=== PATIENT | female | born 1960 | race Caucasian/White ===

== ENCOUNTER 2018-07-05 04:58 | Inpatient (IN) ==
--- NOTE | 2018-06-09 11:27 | Anesthesiology Consultation ---
Date of Service June 09, 2018 Assessment & Plan (1) Encounter for pre-operative examination: Chart Review Chart Review: Acceptable Risk for Surgery and Patient seen in Pre Admission Testing Consults Requested none Teaching & Discussion Pre-Anesthesia Teaching/Discussion Notes: Instructed NPO after midnight before surgery, except medications with 15 cc of water. Medication instructions provided according to the PAT guidelines. History Surgery Operation Date: 07/05/18 12:30 Proposed Procedures p Left Total Knee Arthroplasty - Carlos Yung MD Height/Weight Height: 5 ft 8 in Weight: 74.2 kg Allergies Allergy/AdvReac Type Severity Reaction Status Date / Time No Known Allergies Allergy Unknown Verified 06/05/18 10:30 Medications Home Medications Medication Instructions Recorded Confirmed Last Taken acetaminophen [Tylenol] 650 mg PO Q6H PRN 06/05/18 06/05/18 Unknown amlodipine 2.5 mg PO QAM 06/05/18 06/05/18 Unknown calcium carbonate [Calcium 500] 500 mg PO QAM 06/05/18 06/05/18 Unknown diclofenac sodium 50 mg PO BID 06/05/18 06/05/18 Unknown multivitamin 1 cap PO QAM 06/05/18 06/05/18 Unknown ranitidine HCl 150 mg PO QAM 06/05/18 06/05/18 Unknown Past Medical History Medical History GERD (gastroesophageal reflux disease) Hypertension Osteoarthritis Past Surgical History Surgical History History of ankle surgery LEFT ANKLE REPAIR WITH HARDWARE. History of bilateral tubal ligation History of total hip arthroplasty B/L Past Anesthesia History No Hx of Anesthesia Complications and No Family Hx of Anesthesia Complications History of PONV No Motion Sickness Screening History of Motion Sickness: Yes Social History Smoking Status: Never smoker Do You Dip or Chew Tobacco: No Hx Alcohol Use: Yes Alcohol type: wine alcohol intake frequency: 0-2 drinks per day Alcohol Intake Frequency Comment: 1-2 GLASSES PER NIGHT Hx Substance Use: No substance use type: does not use Exercise / Class Metabolic Activity II 4-5 Yardwork/Stairs/Walk up hill (30 minutes on stationary bike each morning. Free weights each morning. Able to climb FOS. Denies CP or SOB. ) Review of Systems Patient denies chest pain, shortness of breath, dyspnea on exertion, reflux ( controlled with medication), cough, wheezing, palpitations. +joint pain (knees) Physical Exam Vital Signs BP: 124/74 P: 64 R: 18 T: 97.4 SPO2: 98% on RA ENMT Thyromental Distance: > or= 3.5 Finger Breadths (4) Mallampati Class: II Neck normal visual inspection and trachea midline; neck extension not limited Respiratory normal respiratory effort Auscultation: lungs clear to auscultation bilaterally Cardiovascular Rate/Rhythm: regular rate and regular rhythm Heart Sounds: no murmur Vessels: no carotid bruit Psychiatric Orientation: alert and oriented x 3 Testing Electrocardiogram Date: 06/09/18 Findings: + SB @ (59) Chest X-Ray Date: 06/09/18 Findings: + NAD FINDINGS: There is suspected mild lung hyperinflation. There is no pneumothorax or pleural effusion. A 4 mm density within the left midlung either reflects a calcified granuloma or benign rib lesion. Cardiac size is normal. Mediastinal contours are normal. IMPRESSION: No acute cardiopulmonary findings. Laboratory Results 06/09/18 11:58 06/09/18 11:58 Blood Type B Positive 06/09/18 11:58 Antibody Screen NEGATIVE 06/09/18 11:58 PT 10.5 Seconds (9.0-12.0) 06/09/18 11:58 INR 1.0 (0.9-1.1) 06/09/18 11:58 APTT 25.1 Seconds (21.0-31.0) 06/09/18 11:58 Hemoglobin A1c 5.7 % (4.5-5.6) H 06/09/18 11:58 Urine Color Yellow 06/09/18 Unknown Urine Appearance Clear (Clear) 06/09/18 Unknown Urine pH 8.0 (4.5-7.5) H 06/09/18 Unknown Ur Specific [place] 1.009 (1.000-1.030) 06/09/18 Unknown Urine Protein Negative (Negative) 06/09/18 Unknown Urine Glucose (UA) Negative (Negative) 06/09/18 Unknown Urine Ketones Negative (Negative) 06/09/18 Unknown Urine Nitrite Negative (Negative) 06/09/18 Unknown Ur Leukocyte Esterase Negative (Negative) 06/09/18 Unknown
--- NOTE | 2018-06-09 11:29 | PAT Medication Instructions ---
Medication Instructions Date of Service June 09, 2018 Home Medications acetaminophen [Tylenol] 650 mg PO Q6H NEEDED amlodipine 2.5 mg PO QAM calcium carbonate [Calcium 500] 500 mg PO QAM diclofenac sodium 50 mg PO BID multivitamin 1 cap PO QAM ranitidine HCl 150 mg PO QAM ASK your surgeon for instructions diclofenac sodium 50 mg PO BID DO NOT take the morning of surgery calcium carbonate [Calcium 500] 500 mg PO QAM multivitamin 1 cap PO QAM Take morning of surgery With a small sip of water, OTHERWISE NOTHING TO EAT OR DRINK AFTER MIDNIGHT: acetaminophen [Tylenol] 650 mg PO Q6H NEEDED amlodipine 2.5 mg PO QAM ranitidine HCl 150 mg PO QAM Take evening before surgery acetaminophen [Tylenol] 650 mg PO Q6H NEEDED Other Notes If you have any questions please call us at [phone] or [phone] or [phone] or [phone]
--- NOTE | 2018-06-09 12:41 | XRay Report ---
XR chest Pre-admission PA/Lat CLINICAL HISTORY: Preoperative evaluation. COMPARISON STUDY: No previous studies for comparison. FINDINGS: There is suspected mild lung hyperinflation. There is no pneumothorax or pleural effusion. A 4 mm density within the left midlung either reflects a calcified granuloma or benign rib lesion. Ca rdiac size is normal. Mediastinal contours are normal. IMPRESSION: No acute cardiopulmonary findings. Electronically signed by: Jamil Quiroz M.D. 06/09/2018 12:40 PM
[2018-06-09 12:46] LABS: Basophils # (auto) 0.02 K/uL (0-0.2); Basophils % (auto) 0.3 %; Eosinophils # (auto) 0.14 K/uL (0-0.5); Eosinophils % (auto) 2.3 %; Hematocrit (blood only) 43.8 % (37-47); Hemoglobin 14.4 g/dL (12.0-16.0); Immature Granulocytes # (auto) 0.01 K/uL (0.00-0.02); Immature Granulocytes % (auto) 0.2 %; Lymphocytes # (auto) 2.09 K/uL (1.2-3.4); Lymphocytes % (auto) 34.4 %; Mean Corpuscular Hgb Conc 32.9 g/dL (32-36); Mean Platelet Volume 11.4 fL (7.4-10.4); Monocytes # (auto) 0.47 K/uL (0.11-0.59); Monocytes % (auto) 7.7 %; Neutrophils # (auto) 3.34 K/uL (1.4-6.5); Neutrophils % (auto) 55.1 %; Platelet Count 225 K/uL (130-400); RDW Coefficient of Variation 13.2 % (11.5-14.5); RDW Standard Deviation 44.4 fL (36.4-46.3); Red Blood Count 4.76 M/uL (4.2-5.4); White Blood Count 6.07 K/uL (4.8-10.8)
[2018-06-09 12:47] LABS: Estimated Average Glucose 117 mg/dl
[2018-06-09 12:57] LABS: Appearance Urine Clear (Clear); Bilirubin Urine Negative (Negative); Color Urine Yellow; Glucose Urine UA Negative (Negative); Ketones Urine Negative (Negative); Leukocyte Esterase Urine Negative (Negative); Nitrite Urine Negative (Negative); Protein Urine Negative (Negative); Specific Gravity Urine 1.009 (1.000-1.030); Urobilinogen Urine Negative (Negative)
[2018-06-09 12:59] LABS: Partial Thromboplastin Time 25.1 Seconds (21.0-31.0); Prothrombin Time 10.5 Seconds (9.0-12.0)
[2018-06-09 14:20] LABS: Albumin Level 3.9 gm/dl (3.4-5.0); BUN Creatinine Ratio 26.7 (10-20); Calcium 8.9 mg/dl (8.5-10.1); Creatinine Clr Calc Pharmacy 87.3 ml/min; Est GFR (African American) 109.9; Est GFR (Non-African American) 94.8; Potassium 3.7 mmol/L (3.5-5.1)
[2018-07-05] MEDS ORDERED: LR 500ML BOLUS IV SCH (06:00)
[2018-07-05] MEDS ORDERED: GABAPENTIN 300 MG x 2 PO SCH (06:00)
[2018-07-05] MEDS ORDERED: TRANEXAMIC ACID 1,000 MG **IV Pre-op IV SCH (06:00)
[2018-07-05] MEDS ORDERED: LR 15ML/HR IV SCH (06:00)
[2018-07-05] MEDS ORDERED: FAMOTIDINE 20 MG TAB PO SCH (06:00)
[2018-07-05] MEDS ORDERED: CEFAZOLIN 1000MG 1,000 MG/7.5 ML SYR IV SCH (06:00)
[2018-07-05] MEDS ORDERED: dexAMETHasone 4 MG TAB PO SCH (06:00)
[2018-07-05] MEDS ORDERED: ROPIVACAINE 0.5% HCL/PF 150 MG, BUPIVACAINE 0.5% MPF 30 ML, EPINEPHrine 30MG/30ML (OR U... INFIL SCH (06:00)
[2018-07-05] MEDS ORDERED: METOCLOPRAMIDE HCL 10 MG TABLET PO SCH (06:00)
[2018-07-05] MEDS ORDERED: CeleBREX 200 MG CAP PO SCH (06:00)
[2018-07-05] MEDS ORDERED: ACETAMINOPHEN 500 MG TAB PO SCH (06:00)
[2018-07-05] MEDS: LR 500ML BOLUS, THEN 15ML/HR IV SCH ×3 (06:07→16:26)
--- NOTE | 2018-07-05 06:14 | History and Physical Report ---
DATE OF ADMISSION: CHIEF COMPLAINT: Chronic left knee pain. HISTORY OF PRESENT ILLNESS: This is a 57-year-old female patient of Dr. Juan complaining of chronic left knee pain, longstanding, now progressively getting worse. The patient has failed conservative treatment including intra-articular injections, anti-inflammatories, home exercise program, and the use of a cane. The patient has increased pain with weightbearing activities and her pain does interfere with her activities of daily living. The patient has been diagnosed with end-stage osteoarthritis per clinical and radiographic exams and she wishes to proceed with a left total knee arthroplasty. PAST MEDICAL HISTORY: Hypertension, osteoarthritis, acid reflux. SOCIAL HISTORY: Nonsmoker, occasional drinker. PAST SURGICAL HISTORY: Both hips, left ankle, both knees. FAMILY HISTORY: Noncontributory. REVIEW OF SYSTEMS: Chronic left knee pain and instability. Otherwise, denies any shortness of breath, chest pain, nausea, vomiting, or any other joint complaints. MEDICATIONS: Amlodipine 2.5 mg daily, diclofenac 50 mg as needed, ranitidine 150 mg daily, calcium 500 mg daily. ALLERGIES: No known drug allergies. PHYSICAL EXAMINATION: GENERAL: Well-developed, well-nourished, 57-year-old female patient of Dr. Juan. She is in no acute distress. She is alert and oriented x3 and pleasant. HEENT: Normocephalic, atraumatic. Extraocular motions are intact. Pupils are equal and reactive to light. HEART: Regular rate and rhythm, no murmurs appreciated. LUNGS: Clear. ABDOMEN: Soft and nontender. Bowel sounds are present. EXTREMITIES: Left knee reveals mild effusion. She has a limited range of motion of 0-110 degrees with crepitation. She has scars from previous surgery. She has 4/5 strength. NEUROLOGIC: Neurovascularly, she is intact in her left lower extremity. DIAGNOSES: Left knee end-stage osteoarthritis, hypertension, acid reflux. PLAN: The patient was advised of her diagnosis. Indications, risks, benefits, and postop course have all been reviewed. The patient wished to proceed with a left total knee arthroplasty. Necessary consent forms, preoperative testing and clearances will be obtained.
[2018-07-05] MEDS ORDERED: EPINEPHrine INJ 1 MG/ML AMP ONE (06:18)
[2018-07-05] MEDS ORDERED: BUPIVACAINE 0.5 % 5 MG/1 ML PF 10ML VIAL ONE (06:18)
[2018-07-05] MEDS ORDERED: ROPIVACAINE 0.5% 5 MG/ML 30 ML VIAL ONE (06:18)
[2018-07-05] MEDS ORDERED: TRANEXAMIC ACID 1,000 MG **IV Intra-op IV SCH (06:30)
[2018-07-05] MEDS ORDERED: fentaNYL citrate 100 MCG/2 ML VIAL ONE (06:54)
[2018-07-05] MEDS ORDERED: LIDOCAINE HCL 2% 2 ML VIAL/AMP(20MG/ML) INFIL ONE (06:54)
[2018-07-05] MEDS ORDERED: PROPOFOL IV EMULSION 10 MG/ML 20 ML VIAL IV ONE (06:54)
[2018-07-05] MEDS ORDERED: MIDAZOLAM HCL 1 MG/ML 2ML VIAL ONE (06:54)
[2018-07-05] MEDS ORDERED: ROCURONIUM BROMIDE 10 MG/ML 5 ML VIAL ONE (06:54)
[2018-07-05] MEDS ORDERED: DEXAMETHASONE SOD INJ 4 MG/ML VIAL ONE (06:54)
[2018-07-05] MEDS ORDERED: ONDANSETRON INJ 2 MG/ML 2 ML VIAL ONE (06:54)
[2018-07-05] MEDS ORDERED: POVIDONE-IODINE OP SOLN 30 ML BTL ONE (06:56)
[2018-07-05] MEDS ORDERED: BACITRACIN INJ 50,000 UNIT VIAL ONE (06:56)
[2018-07-05] MEDS ORDERED: ORTHO JOINT ANESTHETIC ONE (06:56)
--- NOTE | 2018-07-05 07:10 | History & Physical Bridge Note ---
Date of Service July 05, 2018 History & Physical Bridge Note I have examined the patient, reviewed the History & Physical and in the interval since the performance of the History & Physical I have noted the following changes of clinical significance: no changes noted
[2018-07-05] MEDS ORDERED: ATROPINE SULFATE 0.1 MG/ML 10ML SYR IV PRN (07:30)
[2018-07-05] MEDS ORDERED: ONDANSETRON INJ 2 MG/ML 2 ML VIAL IV PRN ×2 (07:30→11:28)
[2018-07-05] MEDS ORDERED: ePHEDrine sulfate 50 MG/ML AMP IV PRN (07:30)
[2018-07-05] MEDS ORDERED: fentaNYL citrate 100 MCG/2 ML VIAL IV PRN (07:30)
--- NOTE | 2018-07-05 09:27 | Post Operative Brief Note ---
Immediate Post Op Note v1 Date of Surgery July 05, 2018 Pre & Post Diagnosis Operation Date: 07/05/18 07:15 Pre-Op Diagnosis: Left Knee Osteoarthritis Post-Op Diagnosis: Left Knee Osteoarthritis Procedure Operation Date: 07/05/18 07:15 Actual Procedures p Left Total Knee Arthroplasty(Left) - Carlos Yung MD Surgeon Carlos Yung MD Career Technical Counselor Valdez TURPIN Estimated Blood Loss 5 Findings Consistent with Post-Op Diagnosis Drains Hemovac Drain (Dual trocar) Anesthesia Type Spinal MAC Complications none Disposition Accompanied Patient To Recovery: No Disposition: Recovery Room Overlapping Procedure I was immediately available: during the entire case.
--- NOTE | 2018-07-05 09:44 | Operative Report ---
Post Operative Report Pre & Post Diagnosis Operation Date: 07/05/18 07:15 Pre-Op Diagnosis: Left Knee Osteoarthritis Post-Op Diagnosis: Left Knee Osteoarthritis Procedure Operation Date: 07/05/18 07:15 Actual Procedures p Left Total Knee Arthroplasty(Left) - Carlos Yung MD Surgeon Carlos Yung MD [id number] Engineer Valdez TURPIN Estimated Blood Loss 5 Findings Consistent with Post-Op Diagnosis Specimens Bone cuts Drains 2 Hemovac Anesthesia Type Spinal MAC Complications none Disposition Accompanied Patient To Recovery: No Disposition: Recovery Room Indications 57-year-old female with chronic bilateral knee osteoarthritis. She is at osteoarthritis both her hips status post bilateral hip replacements. Patient's knees demonstrate her left knee [id number] both medial and lateral compartment with a severe tricompartmental DJD in her right knee she has a valgus knee bone lateral compartment. She presents for staged total knee replacement starting with the left most severe knee. She also has history of previous open surgery on the left knee likely open meniscectomy medially. Description of Procedure The patient was taken to the operating room and anesthetized under spinal MAC adductor nerve block. Patient was placed supine on the the operating table. A pneumatic tourniquet was placed about the left upper thigh. The knee exam demonstrated 15 degree flexion contracture flexion to 95 degrees. The involved leg was elevated exsanguinated with Esmarch bandage and the pneumatic tourniquet was raised to 300 millimeters mercury. A longitudinal incision was made across the anterior knee. Skin flaps were elevated. An incision was made into the medial retinaculum and extended up into the mid third of the quadriceps tendon and extended down to the tibial tubercle. Intra-articular findings demonstrated severe tricompartmental DJD [id number] medial and lateral compartments some anterior medial bone loss on the tibia. Chronic partial tear ACL with remnant ACL remaining only. Multiple loose bodies with very large loose body in the suprapatellar pouch. Tricompartmental osteophytes. Scarred chronically inflamed infrapatellar fat pad. The knee was exposed by excising cruciate ligaments and menisci. The infrapatellar fat pad was resected. The fat pad over the anterior femur at the upper aspect of the articular surface was resected for placement of the component in that area. A subperiosteal peel lateral release was performed around the patella. The Agu[employer] Nephew journey 2.0 posterior stabilized total knee arthroplasty system was utilized for the procedure. The custom femoral cutting guide was pinned in position. The distal femoral cut was made. The size 4, 5 in 1 cutting block was placed. The anterior posterior and chamfer cuts were made. The knee was extended and a free hand cut technique was performed to the patella. The patella with was measured and the width was reproduced using a 32 patella component. 3 drill holes are made for the patella component pegs. The tibia was then subluxed. The custom tibial cutting block was pinned in position and the proximal tibial cut was made with the oscillating saw. The size 4 tibial trial was externally rotated in line with the tibial tubercle and pinned in position. The punch for the stem was used. The femoral trial was inserted and centered the notch cutting devices were used and the collet was placed. Tibial trials were used for the insert. The size 12 trial gave balanced ligaments through full range of motion. Patella tracking was assessed with range of motion. The patella tracked centrally. The trials were removed. The Orthomix anesthetic cocktail was injected per protocol. The cut bone surfaces and soft tissue were copiously irrigated with antibiotic solution with bacitracin. The final components were cemented with Simplex cement. The final components were Agu[employer]hew journey 2.0 posterior stabilized size 4 femur, 4 primary tibial baseplate, 12 posterior stabilized high flex poly-insert for tibia, 32 symmetrical patella. While the cement cured the Betadine soak was used per protocol. When the cement cured the knee was copiously irrigated with pulsatile lavage antibiotic solution with bacitracin. 2 drains were brought out laterally connected to Hemovac. The quadriceps tendon and medial retinaculum were closed with interrupted figure-of- eight #1 Vicryl sutures. The knee was taken through full range of motion and repair was secure. The subcutaneous tissues were closed with 2-0 Vicryl sutures. The skin was closed with chip. A sterile Silverlon dressing was applied. The tourniquet was let down and the patient had good capillary refill to the extremity. The patient tolerated the procedure well. My physician historian research assistant Valdez TURPIN assisted in the procedure including prepping draping leg positioning soft tissue retraction instrument management and assisted in the closure ,dressings application and will participate in postoperative care the patient. I attest to the content of the Intraoperative Record and any orders documented therein. Any exceptions are noted below.
--- NOTE | 2018-07-05 10:02 | XRay Report ---
XR knee LT 2V routine HISTORY: 57 years-old Female Surgical Post Op left knee total joint arthroplasty. History of degener ative joint disease COMPARISON: None available TECHNIQUE: 2 views of the left knee FINDINGS: Left knee total joint arthroplasty with patellar resurfacing. No acute fracture, malalignment or palbo ined foreign body. Anterior midline skin chip are noted along with expected postsurgical soft tiss ue swelling and deep tissue air with surgical drainage catheter. IMPRESSION: Left knee total joint arthroplasty and patella resurfacing with satisfactory alignment. The above report was generated using voice recognition software. It may contain grammatical, syntax o r spelling errors. Electronically signed by: Florian Chau M.D. 07/05/2018 10:01 AM
[2018-07-05] MEDS ORDERED: MAGNESIUM HYDROXIDE SUSP 30 ML UDC PO PRN (11:28)
[2018-07-05] MEDS ORDERED: METOCLOPRAMIDE HCL INJ 5 MG/ML 2 ML VIAL IV PRN (11:28)
[2018-07-05] MEDS ORDERED: NALOXONE HCL 0.4 MG/1 ML VIAL/CARP IV PRN (11:28)
[2018-07-05] MEDS ORDERED: BISACODYL 10 MG SUPP PR PRN (11:28)
[2018-07-05] MEDS ORDERED: SODIUM CHLORIDE 0.9% 1000ML 1,000 ML IV SCH (11:28)
[2018-07-05] MEDS ORDERED: OXYCODONE HCL IR 5 MG TAB (IMMEDIATE RELEASE) PO PRN (11:28)
--- NOTE | 2018-07-05 13:34 | Anesthesiology Progress Note ---
Date of Service July 05, 2018 Anesthesia Post Procedure Vital Signs Vital Signs: Temp Pulse Pulse Pulse Pulse Resp BP 07/05/18 13:00 82 82 16 07/05/18 12:10 66 16 07/05/18 11:35 72 18 07/05/18 11:30 36.8 C 71 16 07/05/18 11:00 36.8 C 64 12 94/54 L 07/05/18 10:55 70 14 97/58 L 07/05/18 10:50 67 12 07/05/18 10:47 66 13 100/59 L 07/05/18 10:45 65 12 83/49 L 07/05/18 10:40 65 11 L 07/05/18 10:37 67 12 92/51 L 07/05/18 10:35 64 12 07/05/18 10:32 65 14 86/53 L 07/05/18 10:30 72 15 79/52 L 07/05/18 10:25 68 13 86/55 L 07/05/18 10:20 37.1 C 68 12 91/52 L 07/05/18 10:15 71 15 88/59 L 07/05/18 10:10 65 14 87/55 L 07/05/18 10:05 66 12 88/55 L 07/05/18 10:04 37.4 C 07/05/18 10:00 69 15 87/54 L 07/05/18 09:56 65 15 91/53 L 07/05/18 09:55 62 15 88/54 L 07/05/18 09:52 64 16 94/62 L 07/05/18 09:50 73 13 86/56 L 07/05/18 09:45 66 14 90/58 L 07/05/18 09:40 70 15 97/59 L 07/05/18 09:35 69 19 99/58 L 07/05/18 09:30 37.7 C H 85 69 16 93/60 L 07/05/18 05:37 36.8 C 73 18 BP Pulse Ox 07/05/18 13:00 119/77 98 07/05/18 12:10 111/73 97 07/05/18 11:35 108/73 94 07/05/18 11:30 106/69 07/05/18 11:00 99 07/05/18 10:55 98 07/05/18 10:50 98 07/05/18 10:47 99 07/05/18 10:45 99 07/05/18 10:40 98 07/05/18 10:37 99 07/05/18 10:35 98 07/05/18 10:32 98 07/05/18 10:30 97 07/05/18 10:25 98 07/05/18 10:20 98 07/05/18 10:15 100 07/05/18 10:10 99 07/05/18 10:05 99 07/05/18 10:04 98 07/05/18 10:00 98 07/05/18 09:56 99 07/05/18 09:55 100 07/05/18 09:52 100 07/05/18 09:50 100 07/05/18 09:45 99 07/05/18 09:40 98 07/05/18 09:35 100 07/05/18 09:30 93/60 L 100 07/05/18 05:37 124/85 95 Pain Intensity Left Knee: Pain Intensity: 0 Notes Mental Status: alert / awake / arousable and participated in evaluation Nausea / Vomiting: adequately controlled Pain: adequately controlled Airway Patency, RR, SpO2: stable & adequate BP & HR: stable & adequate Hydration State: stable & adequate Neuraxial Anesthesia: was administered and sensory block resolved Anesthetic Complications: no major complications apparent and Pt Satisfied with anesthetic care
[2018-07-05] MEDS: ACETAMINOPHEN 500 MG TAB PO SCH ×2 (13:45→23:34)
[2018-07-05] MEDS: CEFAZOLIN 1000MG 1,000 MG/7.5 ML SYR IV SCH ×2 (14:24→23:36)
--- NOTE | 2018-07-05 15:57 | Consultation ---
Date of Consultation July 05, 2018 Assessment & Plan (1) Post-operative state: s/p left TKA 07/05 monitor for acute blood loss - CBC am Bowel regimen, DVT proph, pain control per primary prp am Patient reports that she drinks 2 glasses of red wine per night but occasionally has up to 4 drinks. She takes 2000 mg of Tylenol per day. I did caution her about chronic alcohol use with chronic Tylenol use and that she may want to reduce one or the other to avoid injury to her liver. She did say she planned to abstain from drinking while taking opioids following this surgery. (2) Hypertension: Continue home amlodipine (3) GERD (gastroesophageal reflux disease): continue home ranitidine Medicine will sign off at this time. Please let us know if we can be of further service in the future. Supervising Physician Co-Signing Physician Notes RUBBER GRINDER Physician Supervision Note: I discussed with Aziza Rodriguez NP and agree with findings and plan as documented in the note. Any exceptions or clarifications are listed here: None I did independently seen and examined the patient in the room she is got some no real postoperative pain she has some discomfort in her knee otherwise she is without chest pain pressure shortness of breath or cardiac sounds regular lungs are clear we will continue her postoperative case will be available for questions were to arise will sign off at this time Documented By: Les Quintana History of Present Illness Attending Physician: Carlos Yung MD History of Present Illness Ms. Marquez has no complaints. Her pain is well controlled. She did have some bleeding around her drain but it was repositioned by Dr. Ynug. Allergies Allergy/AdvReac Type Severity Reaction Status Date / Time No Known Allergies Allergy Unknown Verified 07/05/18 05:33 Home Medications Home Medications Medication Instructions Recorded Confirmed Type acetaminophen [Tylenol] 650 mg PO Q6H PRN 06/05/18 07/05/18 History amlodipine 2.5 mg PO QAM 06/05/18 07/05/18 History calcium carbonate [Calcium 500] 500 mg PO QAM 06/05/18 07/05/18 History diclofenac sodium 50 mg PO BID 06/05/18 07/05/18 History multivitamin 1 cap PO QAM 06/05/18 07/05/18 History ranitidine HCl 150 mg PO QAM 06/05/18 07/05/18 History Patient History Medical History GERD (gastroesophageal reflux disease) Hypertension Osteoarthritis Surgical History History of ankle surgery LEFT ANKLE REPAIR WITH HARDWARE. History of bilateral tubal ligation History of total hip arthroplasty B/L Family History Other Family history non-contributory Social History Current Living Situation: Spouse Other Information That Helps Us Care for You: No Feels Safe at Home: Yes Safety Concerns: Feels Safe At This Time Smoking Status: Never smoker Do You Dip or Chew Tobacco: No Hx Alcohol Use: Yes Alcohol type: wine Alcohol Intake Frequency: 0-2 drinks per day Hx Substance Use: No Beliefs That Will Affect Care: None Preferred Language: Arabic Communication Ability: Effective Fixed Income Director Required: No Physical Exam 2 Vital Signs (Past 24 Hours): Last Vital Signs Temp 36.7 C 07/05/18 15:23 Pulse 65 07/05/18 15:23 Resp 16 07/05/18 15:23 BP 117/81 07/05/18 15:23 Pulse Ox 94 07/05/18 15:23 Physical Exam: General: no distress Eyes: normal inspection, PERLL Respiratory: chest non tender, clear to auscultation, normal breath sounds, no respiratory distress, no accessory muscle use Cardiac: regular rate and rhythm, no rub or gallop, no murmur, no edema, no jvd GI/: active bowel sounds, no abd pain or tenderness, soft, non distended Extremities: normal range of motion, normal strength, non tender Neuro: awake, moves all extremities Psych: alert and oriented x 3, normal mood and affect Skin: normal color, dry, dressing intact, hemovac with bloody drainage
[2018-07-05] MEDS: TRAMADOL HCL 50 MG TABLET PO PRN (19:41)
[2018-07-05] MEDS: CeleBREX 200 MG CAP PO SCH (20:37)
[2018-07-05] MEDS: SENNA 8.6 MG TAB PO SCH (20:37)
[2018-07-05] MEDS: DOCUSATE SODIUM 100 MG CAP PO SCH (20:37)
[2018-07-05] MEDS: ASPIRIN 81 MG ECTAB PO SCH (20:38)
[2018-07-06] MEDS: TRAMADOL HCL 50 MG TABLET PO PRN ×4 (03:21→20:16)
[2018-07-06 05:46] LABS: Hematocrit (blood only) 35.7 % (37-47); Hemoglobin 11.8 g/dL (12.0-16.0); Mean Corpuscular Hgb Conc 33.1 g/dL (32-36); Mean Corpuscular Volume 91.5 fL (80-100); Platelet Count 179 K/uL (130-400); RDW Coefficient of Variation 12.9 % (11.5-14.5); RDW Standard Deviation 43.4 fL (36.4-46.3); White Blood Count 13.06 K/uL (4.8-10.8)
[2018-07-06] MEDS: ACETAMINOPHEN 500 MG TAB PO SCH ×3 (05:52→21:45)
[2018-07-06 06:16] LABS: BUN Creatinine Ratio 24.3 (10-20); Calcium 8.2 mg/dl (8.5-10.1); Est GFR (African American) 114.4; Est GFR (Non-African American) 98.7; Potassium 3.8 mmol/L (3.5-5.1)
[2018-07-06] MEDS: AMLODIPINE BESYLATE 5 MG TAB PO SCH (07:35)
[2018-07-06] MEDS: MULTIVITAMIN TAB PO SCH (07:35)
[2018-07-06] MEDS: ASPIRIN 81 MG ECTAB PO SCH ×2 (07:35→20:14)
[2018-07-06] MEDS: DOCUSATE SODIUM 100 MG CAP PO SCH ×2 (07:35→20:14)
[2018-07-06] MEDS: CALCIUM CARBONATE 1250MG TAB PO SCH (07:35)
[2018-07-06] MEDS: CeleBREX 200 MG CAP PO SCH ×2 (07:36→20:14)
--- NOTE | 2018-07-06 07:55 | Anesthesiology Progress Note ---
Date of Service July 06, 2018 Anesthesia Post Procedure Vital Signs Vital Signs: Temp Pulse Pulse Pulse Pulse Resp BP 07/06/18 07:17 36.8 C 73 16 07/06/18 03:07 36.6 C 72 16 07/05/18 23:25 36.7 C 69 16 07/05/18 19:19 36.7 C 67 16 07/05/18 15:23 36.7 C 65 16 07/05/18 14:10 36.4 C L 72 16 07/05/18 13:00 82 82 16 07/05/18 12:10 66 16 07/05/18 11:35 72 18 07/05/18 11:30 36.8 C 71 16 07/05/18 11:00 36.8 C 64 12 94/54 L 07/05/18 10:55 70 14 97/58 L 07/05/18 10:50 67 12 07/05/18 10:47 66 13 100/59 L 07/05/18 10:45 65 12 83/49 L 07/05/18 10:40 65 11 L 07/05/18 10:37 67 12 92/51 L 07/05/18 10:35 64 12 07/05/18 10:32 65 14 86/53 L 07/05/18 10:30 72 15 79/52 L 07/05/18 10:25 68 13 86/55 L 07/05/18 10:20 37.1 C 68 12 91/52 L 07/05/18 10:15 71 15 88/59 L 07/05/18 10:10 65 14 87/55 L 07/05/18 10:05 66 12 88/55 L 07/05/18 10:04 37.4 C 07/05/18 10:00 69 15 87/54 L 07/05/18 09:56 65 15 91/53 L 07/05/18 09:55 62 15 88/54 L 07/05/18 09:52 64 16 94/62 L 07/05/18 09:50 73 13 86/56 L 07/05/18 09:45 66 14 90/58 L 07/05/18 09:40 70 15 97/59 L 07/05/18 09:35 69 19 99/58 L 07/05/18 09:30 37.7 C H 85 69 16 93/60 L BP Pulse Ox 07/06/18 07:17 135/76 96 07/06/18 03:07 113/73 96 07/05/18 23:25 110/67 95 07/05/18 19:19 107/68 94 07/05/18 15:23 117/81 94 07/05/18 14:10 107/68 95 07/05/18 13:00 119/77 98 07/05/18 12:10 111/73 97 07/05/18 11:35 108/73 94 07/05/18 11:30 106/69 07/05/18 11:00 99 07/05/18 10:55 98 07/05/18 10:50 98 07/05/18 10:47 99 07/05/18 10:45 99 07/05/18 10:40 98 07/05/18 10:37 99 07/05/18 10:35 98 07/05/18 10:32 98 07/05/18 10:30 97 07/05/18 10:25 98 07/05/18 10:20 98 07/05/18 10:15 100 07/05/18 10:10 99 07/05/18 10:05 99 07/05/18 10:04 98 07/05/18 10:00 98 07/05/18 09:56 99 07/05/18 09:55 100 07/05/18 09:52 100 07/05/18 09:50 100 07/05/18 09:45 99 07/05/18 09:40 98 07/05/18 09:35 100 07/05/18 09:30 93/60 L 100 Pain Intensity Left Knee: Pain Intensity: 4 Notes Mental Status: alert / awake / arousable and participated in evaluation Patient Amnestic to Procedure: Yes Nausea / Vomiting: adequately controlled Pain: adequately controlled Airway Patency, RR, SpO2: stable & adequate BP & HR: stable & adequate Hydration State: stable & adequate Neuraxial Anesthesia: was administered and sensory block resolved Anesthetic Complications: no major complications apparent and Pt Satisfied with anesthetic care
--- NOTE | 2018-07-06 08:27 | Orthopedic Progress Note ---
Date of Service July 06, 2018 Assessment & Plan (1) Left knee DJD: POD #1. Left TKA PT/ OT DVT proph- ASA D/C planning- Home w OPPT. Appreciate medicine input. Subjective POD #1, Doing well, Denies SOB, CP, N/V. Pain controlled well. Physical Exam 2 Vital Signs (Past 24 Hours): Last Vital Signs Temp 36.8 C 07/06/18 07:17 Pulse 73 07/06/18 07:17 Resp 16 07/06/18 07:17 BP 135/76 07/06/18 07:17 Pulse Ox 96 07/06/18 07:17 Physical Exam: Left knee dressings c/d/i, no drainage, no calf tenderness, toes and ankle mobile, A&Ox3.
[2018-07-06] MEDS: SENNA 8.6 MG TAB PO SCH (20:14)
[2018-07-07] MEDS: TRAMADOL HCL 50 MG TABLET PO PRN ×3 (00:52→11:04)
[2018-07-07] MEDS: ACETAMINOPHEN 500 MG TAB PO SCH (05:28)
[2018-07-07 06:41] LABS: BUN Creatinine Ratio 30.9 (10-20); Calcium 7.8 mg/dl (8.5-10.1); Creatinine Clr Calc Pharmacy 93.5 ml/min; Est GFR (African American) 113.8; Est GFR (Non-African American) 98.2; Potassium 3.7 mmol/L (3.5-5.1)
[2018-07-07 06:42] LABS: Hematocrit (blood only) 33.5 % (37-47); Mean Corpuscular Hgb Conc 32.8 g/dL (32-36); Mean Corpuscular Volume 91.5 fL (80-100); Mean Platelet Volume 10.9 fL (7.4-10.4); Platelet Count 172 K/uL (130-400); RDW Standard Deviation 43.8 fL (36.4-46.3); Red Blood Count 3.66 M/uL (4.2-5.4); White Blood Count 8.76 K/uL (4.8-10.8)
[2018-07-07] MEDS: AMLODIPINE BESYLATE 5 MG TAB PO SCH (07:10)
[2018-07-07] MEDS: CALCIUM CARBONATE 1250MG TAB PO SCH (07:10)
[2018-07-07] MEDS: DOCUSATE SODIUM 100 MG CAP PO SCH (07:10)
[2018-07-07] MEDS: CeleBREX 200 MG CAP PO SCH (07:10)
[2018-07-07] MEDS: MULTIVITAMIN TAB PO SCH (07:10)
[2018-07-07] MEDS: ASPIRIN 81 MG ECTAB PO SCH (07:11)
--- NOTE | 2018-07-07 07:23 | Orthopedic Progress Note ---
Date of Service July 07, 2018 Assessment & Plan (1) Left knee DJD: POD #2. Left TKA PT/ OT DVT proph- ASA D/C planning- Home w OPPT. today. Appreciate medicine input. Subjective POD #2, Doing well, Denies SOB, CP, N/V. Pain controlled well. Physical Exam 2 Vital Signs (Past 24 Hours): Last Vital Signs Temp 36.4 C L 07/06/18 23:14 Pulse 69 07/06/18 23:14 Resp 18 07/06/18 23:14 BP 109/68 07/06/18 23:14 Pulse Ox 95 07/06/18 23:14 Physical Exam: Left knee silverlon dressing c/d/i, no drainage, no erythema, no calf tenderness, toes and ankle mobile.
--- NOTE | 2018-07-08 09:52 | Discharge Summary ---
Date of Service July 19, 2018 Discharge Data Consultations 06/29/18 16:04 Consult Hospitalist Routine 07/05/18 11:28 Consult Case Management - Discharge Planning Routine Consult Hospitalist Routine Procedures Performed Operation Date: 07/05/18 07:15 Actual Procedures p Left Total Knee Arthroplasty(Left) - Carlos Yung MD
--- NOTE | 2018-07-18 13:04 | Discharge Summary ---
HISTORY OF PRESENT ILLNESS: This is a 57-year-old female patient of Dr. Yung'bill complaining of chronic left knee pain, longstanding, now progressively getting worse. The patient failed conservative treatment and elected to proceed with a left total knee arthroplasty. She was diagnosed with end-stage osteoarthritis per clinical and radiographic exam. PAST MEDICAL HISTORY: Hypertension, osteoarthritis, acid reflux. POSTOPERATIVE COURSE: The patient underwent a left total knee arthroplasty on 07/05/2018. She was followed closely with medical consultation, physical therapy, pain control and DVT prophylaxis in the form of aspirin twice daily. She did very well postoperatively with no issues and was discharged home on postoperative day #2. PHYSICAL EXAMINATION ON DISCHARGE: Left knee Silverlon dressing was clean, dry and intact. There was no redness or drainage. She had no calf tenderness. Negative Homans sign. Ankle and toes were mobile. Neurologically and neurovascularly, she is intact in her left lower extremity. DIAGNOSIS: Status post left total knee arthroplasty, hypertension, osteoarthritis, and acid reflux. PLAN: The patient was discharged home with outpatient physical therapy. She will continue her preadmission medications with the addition of aspirin twice daily for DVT prophylaxis and pain medications. She will follow up as scheduled as an outpatient.
== END 2018-07-07 11:40 | disposition home or self-care (01) | DRG 470 ==
LOC: ASU 04:58 → 3E 11:15
DX: Z96.643 Presence of artificial hip joint, bilateral; M17.0 Bilateral primary osteoarthritis of knee; I10 Essential (primary) hypertension; M23.52 Chronic instability of knee, left knee; K21.9 Gastro-esophageal reflux disease without esophagitis; Z79.1 Long term (current) use of non-steroidal anti-inflammatories (NSAID); Z79.899 Other long term (current) drug therapy

== ENCOUNTER 2018-10-11 06:52 | Inpatient (IN) ==
--- NOTE | 2018-09-25 10:02 | Anesthesiology Consultation ---
Date of Service September 25, 2018 Assessment & Plan (1) Encounter for pre-operative examination: Chart Review Chart Review: Acceptable Risk for Surgery and Patient NOT seen in Pre Admission Testing Consults Requested none History Surgery Operation Date: 10/11/18 09:40 Proposed Procedures p Right Total Knee Arthroplasty - Carlos Yung MD Height/Weight Height: 5 ft 8 in Weight: 71.668 kg Allergies Allergy/AdvReac Type Severity Reaction Status Date / Time No Known Allergies Allergy Unknown Verified 08/15/18 13:17 Medications Home Medications Medication Instructions Recorded Confirmed Last Taken amlodipine 2.5 mg PO QAM 06/05/18 08/15/18 07/05/18 03:30 calcium carbonate [Calcium 500] 500 mg PO QAM 06/05/18 08/15/18 07/04/18 05:30 multivitamin 1 cap PO QAM 06/05/18 08/15/18 07/04/18 05:30 ranitidine HCl 150 mg PO QAM 06/05/18 08/15/18 07/05/18 03:30 tramadol 50 - 100 mg PO Q4H PRN #30 tab 07/07/18 08/15/18 Unknown aspirin 81 mg PO QAM 08/15/18 08/15/18 Unknown Past Surgical History Surgical History History of ankle surgery LEFT ANKLE REPAIR WITH HARDWARE. History of bilateral tubal ligation History of total hip arthroplasty B/L History of total left knee replacement Social History Smoking Status: Never smoker Do You Dip or Chew Tobacco: No Hx Alcohol Use: Yes Alcohol type: wine alcohol intake frequency: 0-2 drinks per day Hx Substance Use: No substance use type: does not use Testing Electrocardiogram Date: 06/09/18 Findings: + SB @ (59 BPM)
--- NOTE | 2018-10-10 22:01 | History and Physical Report ---
DATE OF ADMISSION: 10/11/2018 CHIEF COMPLAINT: Right knee pain. HISTORY OF PRESENT ILLNESS: This is a 57-year-old female patient of Dr. Yung'bill complaining of chronic right knee pain, longstanding, now progressively getting worse. The patient has been diagnosed with end-stage osteoarthritis per clinical and radiographic exams. The patient has failed conservative treatment including intraarticular injections, anti-inflammatories, Tylenol and the use of a cane. The patient has increased pain with weightbearing activities and her pain does interfere with her activities of daily living. PAST MEDICAL HISTORY: Hypertension, osteoarthritis and acid reflux. SOCIAL HISTORY: Nonsmoker, 10 drinks per week drinker. PAST SURGICAL HISTORY: Bilateral hip surgeries, left ankle surgery, left knee replacement. REVIEW OF SYSTEMS: Chronic right knee pain and instability. Otherwise, denies any shortness of breath, chest pain, nausea, vomiting or any other joint complaints. FAMILY HISTORY: Noncontributory. MEDICATIONS: Amlodipine 10 mg daily, calcium 500 mg twice daily, ranitidine 150 mg 3 times daily and tramadol 50 mg every 4-6 hours as needed. ALLERGIES: No known drug allergies. PHYSICAL EXAMINATION: GENERAL: Well-developed, well-nourished 57-year-old female in no acute distress. She is alert and oriented x3 and pleasant. HEENT: Normocephalic, atraumatic. Extraocular motions are intact. Pupils are equal and reactive to light. HEART: Regular rate and rhythm, no murmurs. LUNGS: Clear. ABDOMEN: Soft, nontender, bowel sounds present. EXTREMITIES: Right knee reveals a valgus deformity with lateral joint line tenderness. She has 0-120 degrees of range of motion with crepitation. She has 4/5 strength with pain. She has a mild effusion. NEUROLOGIC: Neurovascularly, she is intact in her right lower extremity. DIAGNOSES: Right knee end-stage osteoarthritis, hypertension and acid reflux. PLAN: The patient was advised of her diagnosis. Indications, risks, benefits, postop course have all been reviewed. The patient wishes to proceed with a right total knee arthroplasty. Necessary consent forms, preoperative testing and clearances will be obtained.
[~2018-10-11 06:52] MED LIST: ACETAMINOPHEN 500 MG TAB PO SCH; CEFAZOLIN 1000MG 1,000 MG/7.5 ML SYR IV SCH; CeleBREX 200 MG CAP PO SCH; FAMOTIDINE 20 MG TAB PO SCH; GABAPENTIN 300 MG x 2 PO SCH; LR 15ML/HR IV SCH; METOCLOPRAMIDE HCL 10 MG TABLET PO SCH; ROPIVACAINE 0.5% HCL/PF 150 MG, BUPIVACAINE 0.5% MPF 30 ML, EPINEPHrine 30MG/30ML (OR U... INFIL SCH; TRANEXAMIC ACID 1,000 MG **IV Intra-op IV SCH; TRANEXAMIC ACID 1,000 MG **IV Pre-op IV SCH; dexAMETHasone 4 MG TAB PO SCH
[2018-10-11] MEDS ORDERED: BUPIVACAINE 0.5 % 5 MG/1 ML PF 10ML VIAL ONE (07:28)
[2018-10-11] MEDS ORDERED: ROPIVACAINE 0.5% 5 MG/ML 30 ML VIAL ONE (07:29)
[2018-10-11] MEDS ORDERED: EPINEPHrine INJ 1 MG/ML AMP ONE (07:29)
[2018-10-11] MEDS ORDERED: ePHEDrine sulfate 50 MG/ML AMP IV PRN (07:51)
[2018-10-11] MEDS ORDERED: ATROPINE SULFATE 0.1 MG/ML 10ML SYR IV PRN (07:51)
[2018-10-11] MEDS ORDERED: MEPERIDINE HCL 25 MG/ML CARP IV PRN (07:51)
[2018-10-11] MEDS ORDERED: LABETALOL HCL IV 5 MG/ML 20ML IV PRN (07:51)
[2018-10-11] MEDS ORDERED: PHENYLEPHRINE 100MCG/ML 5ML SYR IV PRN (07:51)
[2018-10-11] MEDS ORDERED: HYDROmorphone INJ 1 MG/ML SYRINGE IV PRN (07:51)
[2018-10-11] MEDS ORDERED: ONDANSETRON INJ 2 MG/ML 2 ML VIAL IV PRN ×2 (07:51→13:01)
[2018-10-11] MEDS ORDERED: fentaNYL citrate 100 MCG/2 ML VIAL IV PRN (07:51)
[2018-10-11] MEDS ORDERED: fentaNYL citrate 100 MCG/2 ML VIAL ONE (08:36)
[2018-10-11] MEDS ORDERED: MIDAZOLAM HCL 1 MG/ML 2ML VIAL ONE (08:36)
--- NOTE | 2018-10-11 09:14 | History & Physical Bridge Note ---
Date of Service October 11, 2018 History & Physical Bridge Note I have examined the patient, reviewed the History & Physical and in the interval since the performance of the History & Physical I have noted the following changes of clinical significance: no changes noted
[2018-10-11] MEDS ORDERED: POVIDONE-IODINE OP SOLN 30 ML BTL ONE (09:15)
[2018-10-11] MEDS ORDERED: BACITRACIN INJ 50,000 UNIT VIAL ONE (09:15)
[2018-10-11] MEDS ORDERED: ORTHO JOINT ANESTHETIC ONE (09:15)
[2018-10-11] MEDS ORDERED: PROPOFOL IV EMULSION 10 MG/ML 20 ML VIAL IV ONE (11:00)
--- NOTE | 2018-10-11 11:18 | Post Operative Brief Note ---
Immediate Post Op Note v1 Date of Surgery October 11, 2018 Pre & Post Diagnosis Operation Date: 10/11/18 09:15 Pre-Op Diagnosis: Right Knee Primary Osteoarthritis Post-Op Diagnosis: Right Knee Primary Osteoarthritis Procedure Operation Date: 10/11/18 09:15 Actual Procedures p Right Total Knee Arthroplasty(Right) - Carlos Yung MD Surgeon Carlos Yung MD Assistant Professor Of Criminal Justice PAPI Lucas Estimated Blood Loss 2 Findings Consistent with Post-Op Diagnosis Specimens Bone cuts Drains Hemovac Drain Anesthesia Type Spinal MAC Complications none Disposition Accompanied Patient To Recovery: No Disposition: Recovery Room Overlapping Procedure I was immediately available: during the entire case.
--- NOTE | 2018-10-11 11:45 | Operative Report ---
Post Operative Report Pre & Post Diagnosis Operation Date: 10/11/18 09:15 Pre-Op Diagnosis: Right Knee Primary Osteoarthritis Post-Op Diagnosis: Right Knee Primary Osteoarthritis Procedure Operation Date: 10/11/18 09:15 Actual Procedures p Right Total Knee Arthroplasty(Right) - Carlos Yung MD Surgeon Carlos Yung MD Senior Loss Control Specialist PAPI Lucas Estimated Blood Loss 2 Findings Consistent with Post-Op Diagnosis Specimens Bone cuts Drains 2 Hemovac Anesthesia Type Spinal MAC Complications none Disposition Accompanied Patient To Recovery: No Disposition: Recovery Room Indications 57-year-old female presents for staged knee replacement. She has successful left knee replacement in June of this year. Right knee is [id number] in the lateral compartment with valgus knee. Description of Procedure The patient was taken to the operating room and anesthetized under spinal MAC regional block. Patient was placed supine on the the operating table. A pneumatic tourniquet was placed about the right upper thigh. The knee exam demonstrated 10 degree flexion contracture with flexion to 130 degrees moderate effusion valgus in the [id number] lateral compartment positive Robert exam previous scars from arthroscopic surgery. The involved leg was elevated exsanguinated with Esmarch bandage and the pneumatic tourniquet was raised to 300 millimeters mercury. A longitudinal incision was made across the anterior knee. Skin flaps were elevated. An incision was made into the medial retinaculum and extended up into the mid third of the quadriceps tendon and extended down to the tibial tubercle. Intra-articular findings demonstrated [id number] lateral compartment patellofemoral malalignment with grade 4 nicholas lofemoral DJD flattening of the patella articular surface. Multiple loose bodies. Chronic tear lateral meniscus. The knee was exposed by excising cruciate ligaments and menisci. The infrapatellar fat pad was resected. The fat pad over the anterior femur at the upper aspect of the articular surface was resected for placement of the component in that area. A subperiosteal peel lateral release was performed around the patella. All loose bodies were resected. Releases laterally with partial release IT band subperiosteally and posterior lateral capsule performed to balance ligaments. No medial releases were performed. The [employer] journey 2.0 posterior stabilized total knee arthroplasty system was utilized for the procedure. The custom femoral cutting guide was pinned in position. The distal femoral cut was made. The size 5, 5 in 1 cutting block was placed. The anterior posterior and chamfer cuts were made. The knee was extended and a free hand cut technique was performed to the patella. The patella with was measured and the width was reproduced using a 32 symmetrical patella component. 3 drill holes are made for the patella component pegs. The tibia was then subluxed. The custom tibial cutting block was pinned in position and the proximal tibial cut was made with the oscillating saw. The size 4 tibial trial was externally rotated in line with the tibial tubercle and pinned in position. The punch for the stem was used. The femoral trial was inserted and centered the notch cutting devices were used and the collet was placed. Tibial trials were used for the insert. The size 9 posterior stabilized trial gave balanced ligaments through full range of motion. Patella tracking was assessed with range of motion. The patella tracked laterally with lateral tilt so a formal lateral release was performed releasing the lateral retinaculum leaving the synovium intact and the patella tracked completely centrally. The trials were removed. The Orthomix anesthetic cocktail was injected per protocol. The cut bone surfaces and soft tissue were copiously irrigated with antibiotic solution with bacitracin. The final components were cemented with Simplex cement. The final components were [employer] journey 2.0 size 5 posterior stabilized right femoral component for primary tibial baseplate 9 mm posterior stabilized tibial polyethylene component and 32 symmetrical patella.. While the cement cured the Betadine soak was used per protocol. When the cement cured the knee was copiously irrigated with pulsatile lavage antibiotic solution with bacitracin. 2 drains were brought out laterally connected to Hemovac. The quadriceps tendon and medial retinaculum were closed with interrupted [id number] #1 Vicryl sutures. The knee was taken through full range of motion and repair was secure. The subcutaneous tissues were closed with 2-0 Vicryl sutures. The skin was closed with chip. A sterile Silverlon dressing was applied. The tourniquet was let down and the patient had good capillary refill to the extremity. The patient tolerated the procedure well. My physician commercial lending assistant Valdez TURPIN assisted in the procedure including prepping draping leg positioning soft tissue retraction instrument management and assisted in the closure ,dressings application and will participate in postoperative care the patient. I attest to the content of the Intraoperative Record and any orders documented therein. Any exceptions are noted below.
[2018-10-11] MEDS ORDERED: PHENYLEPHRINE 100MCG/ML 5ML SYR ONE (11:56)
[2018-10-11] MEDS ORDERED: ePHEDrine sulfate 50 MG/ML SYR ONE (11:56)
--- NOTE | 2018-10-11 12:23 | XRay Report ---
XR knee RT 2V routine CLINICAL HISTORY: Surgical Post Op postoperative evaluation COMPARISON: None DISCUSSION: Anatomic alignment post total right knee arthroplasty. Good contact between prosthetic an d underlying bone. Expected postoperative soft tissue change IMPRESSION: Anatomic alignment post total right knee arthroplasty. The above report was generated using voice recognition software. It may contain grammatical, syntax or spelling errors. Electronically signed by: Valdez Carroll M.D. 10/11/2018 12:22 PM
--- NOTE | 2018-10-11 12:35 | Anesthesiology Progress Note ---
Date of Service October 11, 2018 Anesthesia Post Procedure Vital Signs Vital Signs: Temp Pulse Pulse Resp BP Pulse Ox 10/11/18 12:20 78 14 99/61 L 97 10/11/18 12:10 83 12 105/62 98 10/11/18 12:00 36.6 C 79 16 109/68 97 10/11/18 11:50 83 15 95/61 L 98 10/11/18 11:40 80 14 107/62 98 10/11/18 11:30 84 14 96/61 L 91 10/11/18 11:22 36.5 C 88 18 101/60 94 10/11/18 08:00 36.9 C 86 20 118/84 97 Pain Intensity Right Back: Pain Intensity: 0 Right Knee: Pain Intensity: 0 Transfer of Care Handoff Completed per policy Notes Mental Status: alert / awake / arousable Patient Amnestic to Procedure: Yes Nausea / Vomiting: adequately controlled Pain: adequately controlled Airway Patency, RR, SpO2: stable & adequate BP & HR: stable & adequate Hydration State: stable & adequate Neuraxial Anesthesia: was administered and sensory block is resolving Anesthetic Complications: no major complications apparent and Pt Satisfied with anesthetic care
[2018-10-11] MEDS ORDERED: METOCLOPRAMIDE HCL INJ 5 MG/ML 2 ML VIAL IV PRN (13:01)
[2018-10-11] MEDS ORDERED: MAGNESIUM HYDROXIDE SUSP 30 ML UDC PO PRN (13:01)
[2018-10-11] MEDS ORDERED: NALOXONE HCL 0.4 MG/1 ML VIAL/CARP IV PRN (13:01)
[2018-10-11] MEDS ORDERED: BISACODYL 10 MG SUPP PR PRN (13:01)
[2018-10-11] MEDS ORDERED: SODIUM CHLORIDE 0.9% 1000ML 1,000 ML IV SCH (13:01)
[2018-10-11] MEDS ORDERED: HYDROmorphone INJ 0.5 MG/0.5 ML SYR IV PRN (13:01)
[2018-10-11] MEDS ORDERED: OXYCODONE HCL IR 5 MG TAB (IMMEDIATE RELEASE) PO PRN (13:01)
[2018-10-11] MEDS ORDERED: CeleBREX 200 MG CAP PO PRN (13:01)
[2018-10-11] MEDS: ACETAMINOPHEN 500 MG TAB PO SCH ×2 (14:07→21:18)
--- NOTE | 2018-10-11 16:41 | Consultation ---
Date of Consultation October 11, 2018 Assessment & Plan (1) Post-operative state: Post TKA 10/11 Pain control, bowel regimen, dvt proph per primary Monitor for acute blood loss - CBC am (2) Hypertension: Continue amlodipine (3) GERD (gastroesophageal reflux disease): Continue ranitidine. Supervising Physician Co-Signing Physician Notes EDUCATIONAL PSYCHOLOGY PROFESSOR Physician Supervision Note: I discussed with Aziza Rodriguez EDUCATIONAL PSYCHOLOGY PROFESSOR and agree with findings and plan as documented in the note. Any exceptions or clarifications are listed here: None Patient is seen with her family at the bedside. She has no complaints or problems. Her right knee pain is actually in very good control she is no chest pain pressure shortness of breath her heart is regular lungs are clear Documented By: Les Quintana History of Present Illness Ms. Marquez is post TKA today. She is feeling well, pain is controlled. No complaints Attending Physician: Carlos Yung MD Allergies Allergy/AdvReac Type Severity Reaction Status Date / Time No Known Allergies Allergy Unknown Verified 10/11/18 07:44 Home Medications Home Medications Medication Instructions Recorded Confirmed Type amlodipine 2.5 mg PO QAM 06/05/18 10/11/18 History calcium carbonate [Calcium 500] 500 mg PO QAM 06/05/18 10/11/18 History multivitamin 1 cap PO QAM 06/05/18 10/11/18 History ranitidine HCl 150 mg PO QAM 06/05/18 10/11/18 History tramadol 50 - 100 mg PO Q4H PRN #30 tab 07/07/18 10/11/18 Rx aspirin 81 mg PO QAM 08/15/18 10/11/18 History celecoxib [Celebrex] 200 mg PO BID PRN 10/11/18 10/11/18 History Patient History Medical History GERD (gastroesophageal reflux disease) Hypertension Osteoarthritis Surgical History History of ankle surgery LEFT ANKLE REPAIR WITH HARDWARE. History of bilateral tubal ligation History of total hip arthroplasty B/L History of total left knee replacement Social History Preferred Language: Anguill[place] Communication Ability: Effective Veneer Joiner Required: No Beliefs That Will Affect Care: None marital status: Current Living Situation: Spouse Other Information That Helps Us Care for You: No Feels Safe at Home: Yes Safety Concerns: Feels Safe At This Time Smoking Status: Never smoker Do You Dip or Chew Tobacco: No Second Hand Exposure: No Tobacco Cessation Education Requested by Patient: No Hx Alcohol Use: Yes Alcohol type: wine Hx Substance Use: No Review of Systems Review of Systems: All systems reviewed & are unremarkable except as noted in HPI & below Physical Exam Physical Exam: General: no distress Eyes: normal inspection, PERLL Respiratory: chest non tender, clear to auscultation, normal breath sounds, no respiratory distress, no accessory muscle use Cardiac: regular rate and rhythm, no rub or gallop, no murmur, no edema, no jvd GI/: active bowel sounds, no abd pain or tenderness, soft, non distended Extremities: normal range of motion, normal strength, non tender Neuro:oriented x 3, moves all extremities Psych: alert, normal mood and affect Skin: normal color, dry Results & Data Vital Signs (Past 12 Hours) Vital Signs Temp Pulse Pulse Resp BP Pulse Ox 10/11/18 15:55 36.7 C 84 16 107/66 94 10/11/18 15:03 36.6 C 83 16 109/65 95 10/11/18 13:56 90 16 107/70 97 10/11/18 13:23 84 16 105/64 97 10/11/18 12:50 37.2 C 86 16 102/65 96 10/11/18 12:30 88 12 98/67 L 98 10/11/18 12:20 78 14 99/61 L 97 10/11/18 12:10 83 12 105/62 98 10/11/18 12:00 36.6 C 79 16 109/68 97 10/11/18 11:50 83 15 95/61 L 98 10/11/18 11:40 80 14 107/62 98 10/11/18 11:30 84 14 96/61 L 91 10/11/18 11:22 36.5 C 88 18 101/60 94 10/11/18 08:00 36.9 C 86 20 118/84 97
[2018-10-11] MEDS: CEFAZOLIN 1000MG 1,000 MG/7.5 ML SYR IV SCH (18:03)
[2018-10-11] MEDS: SENNA 8.6 MG TAB PO SCH (21:18)
[2018-10-11] MEDS: DOCUSATE SODIUM 100 MG CAP PO SCH (21:18)
[2018-10-11] MEDS: ASPIRIN 81 MG ECTAB PO SCH (21:18)
[2018-10-12] MEDS: CEFAZOLIN 1000MG 1,000 MG/7.5 ML SYR IV SCH (01:30)
[2018-10-12] MEDS: ACETAMINOPHEN 500 MG TAB PO SCH ×3 (05:33→20:37)
[2018-10-12] MEDS: TRAMADOL HCL 50 MG TABLET PO PRN ×4 (05:34→20:36)
[2018-10-12 07:21] LABS: Hemoglobin 11.8 g/dL (12.0-16.0); Mean Corpuscular Hgb Conc 33.7 g/dL (32-36); Mean Corpuscular Volume 86.6 fL (80-100); Mean Platelet Volume 9.9 fL (7.4-10.4); Platelet Count 179 K/uL (130-400); RDW Coefficient of Variation 13.6 % (11.5-14.5); RDW Standard Deviation 43.3 fL (36.4-46.3); Red Blood Count 4.04 M/uL (4.2-5.4); White Blood Count 14.29 K/uL (4.8-10.8)
[2018-10-12 07:59] LABS: BUN Creatinine Ratio 21.4 (10-20); Calcium 8.6 mg/dl (8.5-10.1); Creatinine Clr Calc Pharmacy 107.2 ml/min; Est GFR (African American) 117.6; Est GFR (Non-African American) 101.5; Potassium 4.1 mmol/L (3.5-5.1)
--- NOTE | 2018-10-12 08:19 | Orthopedic Progress Note ---
Date of Service October 12, 2018 Assessment & Plan (1) Right knee DJD: POd #1, Right TKA PT/ OT DVT proph- ASA, TEDS, SCD's D/C planning- Home w OPPT As per medicine. Subjective POD #1, Doing well, Denies SOB, Cp, N/V, pain controlled well. Physical Exam Physical Exam: Right knee dressings/ drain c/d/i. Toes/ ankle mobile. No calf tenderness. A&Ox3. Results & Data Vital Signs (Past 12 Hours) Vital Signs Temp Pulse Resp BP Pulse Ox 10/12/18 07:31 36.7 C 67 16 128/82 98 10/12/18 04:18 36.5 C 67 16 104/67 97 10/11/18 23:02 36.7 C 69 14 101/64 96
[2018-10-12] MEDS: AMLODIPINE BESYLATE 5 MG TAB PO SCH (09:04)
[2018-10-12] MEDS: CALCIUM CARBONATE 1250MG TAB PO SCH (09:04)
[2018-10-12] MEDS: DOCUSATE SODIUM 100 MG CAP PO SCH ×2 (09:05→20:36)
[2018-10-12] MEDS: ASPIRIN 81 MG ECTAB PO SCH ×2 (09:05→20:37)
[2018-10-12] MEDS: MULTIVITAMIN TAB PO SCH (09:05)
--- NOTE | 2018-10-12 10:19 | Anesthesiology Progress Note ---
Date of Service October 12, 2018 Anesthesia Post Procedure Vital Signs Vital Signs: Temp Pulse Pulse Resp BP Pulse Ox 10/12/18 07:31 36.7 C 67 16 128/82 98 10/12/18 04:18 36.5 C 67 16 104/67 97 10/11/18 23:02 36.7 C 69 14 101/64 96 10/11/18 19:24 36.7 C 74 18 103/65 96 10/11/18 15:55 36.7 C 84 16 107/66 94 10/11/18 15:03 36.6 C 83 16 109/65 95 10/11/18 13:56 90 16 107/70 97 10/11/18 13:23 84 16 105/64 97 10/11/18 12:50 37.2 C 86 16 102/65 96 10/11/18 12:30 88 12 98/67 L 98 10/11/18 12:20 78 14 99/61 L 97 10/11/18 12:10 83 12 105/62 98 10/11/18 12:00 36.6 C 79 16 109/68 97 10/11/18 11:50 83 15 95/61 L 98 10/11/18 11:40 80 14 107/62 98 10/11/18 11:30 84 14 96/61 L 91 10/11/18 11:22 36.5 C 88 18 101/60 94 Pain Intensity Right Back: Pain Intensity: 0 Right Knee: Pain Intensity: 3 Notes Mental Status: alert / awake / arousable and participated in evaluation Patient Amnestic to Procedure: Yes Nausea / Vomiting: adequately controlled Pain: adequately controlled Airway Patency, RR, SpO2: stable & adequate BP & HR: stable & adequate Hydration State: stable & adequate Neuraxial Anesthesia: was administered and sensory block resolved Anesthetic Complications: no major complications apparent
--- NOTE | 2018-10-12 12:28 | Hospitalist Progress Note ---
Date of Service October 12, 2018 Assessment & Plan (1) Post-operative state: Post TKA 10/11 Pain control, bowel regimen, dvt proph per primary Monitor for acute blood loss - hgb 11.8 down from 13 today (2) Hypertension: Continue amlodipine (3) GERD (gastroesophageal reflux disease): Continue ranitidine. Medicine will sign off at this time. Please let us know if we can be of service in the future. Subjective Ms. Marquez is feeling well today. No complaints. Review of Systems Review of Systems: All systems reviewed & are unremarkable except as noted in HPI & below Physical Exam Physical Exam: General: no distress Eyes: normal inspection, PERLL Respiratory: chest non tender, clear to auscultation, normal breath sounds, no respiratory distress, no accessory muscle use Cardiac: regular rate and rhythm, no rub or gallop, no murmur, no edema, no jvd GI/: active bowel sounds, no abd pain or tenderness, soft, non distended Extremities: normal range of motion, normal strength, non tender Neuro/Psych: alert and oriented x 3, normal mood and affect Skin: normal color, dry Results & Data Vital Signs (Past 12 Hours) Vital Signs Temp Pulse Resp BP Pulse Ox 10/12/18 07:31 36.7 C 67 16 128/82 98 10/12/18 04:18 36.5 C 67 16 104/67 97
[2018-10-12] MEDS: SENNA 8.6 MG TAB PO SCH (20:36)
[2018-10-13] MEDS: TRAMADOL HCL 50 MG TABLET PO PRN ×2 (03:14→07:20)
[2018-10-13] MEDS: ACETAMINOPHEN 500 MG TAB PO SCH (05:48)
[2018-10-13 06:11] LABS: Hematocrit (blood only) 33.6 % (37-47); Hemoglobin 10.9 g/dL (12.0-16.0); Mean Corpuscular Hgb Conc 32.4 g/dL (32-36); Mean Corpuscular Volume 88.2 fL (80-100); Mean Platelet Volume 10.5 fL (7.4-10.4); Platelet Count 178 K/uL (130-400); RDW Coefficient of Variation 13.8 % (11.5-14.5); RDW Standard Deviation 44.6 fL (36.4-46.3); Red Blood Count 3.81 M/uL (4.2-5.4); White Blood Count 9.28 K/uL (4.8-10.8)
[2018-10-13 06:50] LABS: BUN Creatinine Ratio 24.7 (10-20); Calcium 8.2 mg/dl (8.5-10.1); Creatinine Clr Calc Pharmacy 88.6 ml/min; Est GFR (African American) 110.4; Est GFR (Non-African American) 95.3; Potassium 3.8 mmol/L (3.5-5.1)
[2018-10-13] MEDS: AMLODIPINE BESYLATE 5 MG TAB PO SCH (07:18)
[2018-10-13] MEDS: ASPIRIN 81 MG ECTAB PO SCH (07:18)
[2018-10-13] MEDS: DOCUSATE SODIUM 100 MG CAP PO SCH (07:18)
[2018-10-13] MEDS: MULTIVITAMIN TAB PO SCH (07:18)
[2018-10-13] MEDS: CALCIUM CARBONATE 1250MG TAB PO SCH (07:18)
--- NOTE | 2018-10-13 07:48 | Orthopedic Progress Note ---
Date of Service October 13, 2018 Assessment & Plan (1) Right knee DJD: POD #2, Right TKA PT/ OT DVT proph- ASA, TEDS, SCD's D/C planning- Home w OPPT today As per medicine. Change silverlon. Home with Zofran. Subjective POD #2, Doing well, Denies SOB, Cp, N/V, pain controlled well. Physical Exam Physical Exam: Right knee silverlon in tact, some cracking, toes and ankle mobile, no calf tenderness. A&Ox3. Results & Data Vital Signs (Past 12 Hours) Vital Signs Temp Pulse Resp BP Pulse Ox 10/13/18 05:16 36.8 C 67 14 106/71 96 10/12/18 23:15 36.5 C 67 18 111/74 96
--- NOTE | 2018-10-22 17:49 | Discharge Summary ---
HISTORY OF PRESENT ILLNESS: This is a 57-year-old female patient of Dr. Yung's complaining of chronic right knee pain, longstanding, now progressively getting worse. The patient was diagnosed with end-stage osteoarthritis and wished to proceed with a right total knee arthroplasty. PAST MEDICAL HISTORY: Hypertension, osteoarthritis, acid reflux. POSTOPERATIVE COURSE: The patient underwent a right total knee arthroplasty on 10/11/2018. She was followed closely with DVT prophylaxis in the form of aspirin, physical therapy, pain medications and medical consultation. The patient did well clinically postoperatively with no issues. The patient was discharged home on postoperative day number 2. PHYSICAL EXAMINATION: Right knee Silverlon dressing was clean, dry and intact. There was no redness or drainage. The patient had no calf tenderness. Negative Homans sign. Toes and ankle were mobile. Neurologically and neurovascularly, she was intact in her right lower extremity. DIAGNOSES: Status post right total knee arthroplasty, hypertension, osteoarthritis and acid reflux. PLAN: The patient was discharged home on postoperative day number 2. She will continue her preadmission medications with the addition of aspirin twice daily for DVT prophylaxis and pain medications. She will attend outpatient physical therapy and follow up with Dr. Yung as an outpatient as scheduled.
== END 2018-10-13 10:38 | disposition home or self-care (01) | DRG 470 ==
LOC: ASU 06:52 → 3E 11:27